=== PATIENT | male | born 1970 | race Caucasian/White ===

== ENCOUNTER → 2018-06-25 | Outpatient (CLI) | payer MEDICAID | END | disposition home or self-care (01) | LOC: CFH 10:10 | PROVIDERS: ATTEND Internal Medicine Critical Care Medicine | DX: J98.4 Other disorders of lung (principal); R59.9 Enlarged lymph nodes, unspecified; M51.34 Other intervertebral disc degeneration, thoracic region | CPT/HCPCS: 71250 ==

== ENCOUNTER 2020-05-29 18:45 | Emergency (ER) | payer MEDICAID ==
[~2020-05-29] VITALS: Ht 177.8 cm; Wt 72.6 kg
[2020-05-29 19:14] VITALS: BP 131/90
[2020-05-29] MEDS ORDERED: LIDOCAINE 1%, 10ML INFIL ONE (20:00)
[2020-05-29] MEDS ORDERED: DIPH,PERTUSS(ACELL),TET VAC/PF 0.5 ML IM-VACC ONE ×2 (20:00→20:02)
[2020-05-29] MEDS ORDERED: LIDOCAINE-MPF 1%, 5ML ONE (20:01)
--- NOTE | 2020-05-29 20:18 | NUR ---
PT TO CT. IRRIGATION AND LIDO SET UP AT BEDSIDE.
--- NOTE | 2020-05-29 21:20 | NUR ---
RECEIVED REPORT FROM [facility]. ASSUMING CARE AT THIS TIME. PROVIDER AT BEDSIDE FOR SUTURES.
[2020-05-29] MEDS ORDERED: NEOSPORIN OINT. PKT 1 PACKET ONE (21:35)
== END 2020-05-29 22:06 ==
LOC: ED 22:00
DX: S01.511A Laceration without foreign body of lip, initial encounter (principal); S09.90XA Unspecified injury of head, initial encounter; W22.8XXA Striking against or struck by other objects, initial encounter; Y93.89 Activity, other specified; Y92.830 Public park as the place of occurrence of the external cause; Y99.8 Other external cause status
CPT/HCPCS: 12011; 12051; 70486; 90471; 90715; 99285